=== PATIENT | female | born 1980 | race Caucasian/White ===

== ENCOUNTER 2017-09-16 03:05 | Emergency (ER) | payer MEDICAID, SELFPAY ==
[2017-09-16 03:06] VITALS: BP 151/93; PULSE 139; RESP 18; TEMP 36.9; O2SAT 98; BMI 20.2
--- NOTE | 2017-09-16 03:08 | RAD_ITS ---
STUDY: X-RAY - RIGHT FOOT CLINICAL: Female, 37 years old. Pain in the fifth metatarsal region. TECHNIQUE: 3 view(s) of the foot. COMPARISON: None. FINDINGS: There is demineralization of the rear and midfoot bones. Normal visualized subtalar, talonavicular, calcaneocuboid, tarsal and tarsometatarsal articulations. There is a nondisplaced fracture of the base of fifth metatarsal. Normal metatarsophalangeal joint of the great toe. Normal tibial and fibular sesamoid bones. Normal interphalangeal joint of the great toe. Normal phalanges of the great toe. Normal second through fifth metatarsophalangeal joints. Normal interphalangeal joints and phalanges of the lesser toes. The soft tissue structures are unremarkable. RAD/Foot min 3 Views IMPRESSION: Nondisplaced fracture of the base of the fifth metatarsal. Electronically Signed: Bolivar Lee MD at 3:33 EDT Tel , Service support ,
[2017-09-16] MEDS: HYDROcodone Bitartrate/Apap 5/325 Tablet PO ×2 (03:13→03:49)
--- NOTE | 2017-09-16 03:13 | ED.DCSUM_ITS ---
- ER Visit Summary Date of Service: 09/16/17 Chief Complaint: Right foot injury History of Present Illness: The patient is a 37 F presents to the emergency department injury to right foot. Patient states that she missed the last stair and twisted her foot underneath her. She was still able to bear weight. She states she went to sleep, and when she woke her pain was rather significant. She was then up to walk on it because of pain. She did not fall. She did not strike her head. She denies any other injury. The patient does not take any daily medications. Physical Examination: Exam is relatively unremarkable. Patient does have contusion at the base of the fifth metatarsal the right foot. Skin is intact. Pulses are normal. Cap refill is less than 2 seconds in the toes. No tenderness of the ankle. Manzo testing negative. Test Results: [] Emergency Department Course and Treatment: Plain films were obtained of the foot. Patient does have evidence of a Rueda fracture. I did educational guidance counselor her that she needs to be strictly nonweightbearing. She was placed in a bulky posterior splint and will be given 2 days of analgesics along with orthopedic follow-up. She was counseled on compartment syndrome and reasons to return. The patient be discharged home. Treatment Plan: [] Disposition: Discharge Impression: 1. Rueda fracture right foot 2. Splint by ED physician This note was generated with [employer] dictation software. It may contain incorrect words, spelling, and punctuation that were not noted in review of the chart prior to signing ED Disposition - Plan for ED Patient: Chief Complaint: Lower Extremity Injury Instructions: ED Fx Foot Prescriptions: Hydrocodone Bitart/Apap 5-325 [[place] 5/325] 1 tab PO Q6H PRN PRN 3 Days #8 tab PRN Reason: Pain Referrals: Ellis Lua MD [STAFF PHYSICIAN] -
[2017-09-16 03:15] VITALS: PULSE 119; O2SAT 99
[2017-09-16 03:50] VITALS: BP 121/76; PULSE 110; RESP 18; O2SAT 99
== END 2017-09-16 03:54 | disposition home or self-care (01) ==
PROVIDERS: Emergency Provider Emergency Medicine; Family Provider Family Medicine; PCP Family Medicine
DX: S92.354A Nondisplaced fracture of fifth metatarsal bone, right foot, initial encounter for closed fracture (principal); Z72.0 Tobacco use; X50.1XXA Overexertion from prolonged static or awkward postures, initial encounter; Y93.01 Activity, walking, marching and hiking; Y92.009 Unspecified place in unspecified non-institutional (private) residence as the place of occurrence of the external cause; Y99.8 Other external cause status
CPT/HCPCS: 29515; 73630; 99284

== ENCOUNTER 2017-12-29 09:24 | Inpatient (IN) | payer MEDICAID, SELFPAY ==
[2017-12-29] VITALS (7 sets, daily range): BP systolic 119–141; BP diastolic 42–97; PULSE 92–122; RESP 14–18; TEMP 36.3–36.9; O2SAT 98–100; BMI 20.3; BMI 20.5
--- NOTE | 2017-12-29 09:46 | ED.VISSUMM ---
- ER Visit Summary Date of Service: 12/29/17 Chief Complaint: Alcohol withdrawal, requests detox History of Present Illness: The patient is a 37 F presenting with alcohol withdrawal symptoms. Patient states that she has been trying to stop drinking at home on her own. She states she last drank 2 nights ago. She states that she has been having a sip of alcohol every few hours. She typically drinks a pint of vodka every 3 days. She has no history of withdrawal seizures. She has not been through detox in the past. She complains of abdominal pain, nausea, vomiting, diarrhea. She complains of feeling shaky. Denies other complaints. Physical Examination: Vitals are stable. Patient is afebrile. Alert no acute distress. HEENT exam is unremarkable. Neck is supple. Lungs are clear and equal bilaterally. Heart is regular and tachycardic Abdomen is soft nontender nondistended. No guarding or rebound Extremities are unremarkable. Skin is warm and dry. No focal neurologic deficit. Remainder of exam is unremarkable. Emergency Department Course and Treatment: Patient is given IV fluids. Her CIWA score is 17. CBC shows a white count of 12.1. Chemistries unremarkable other than potassium 3.4. Direct bili 0.38, alk phos 239, AST 118. Tox is negative. Patient was evaluated by [facility] in the department and accepted for admission. Discussed with the hospitalist for admission Disposition: Admission Impression: Alcohol withdrawal This note was generated with [employer] dictation software. It may contain incorrect words, spelling, and punctuation that were not noted in review of the chart prior to signing ED Disposition - Plan for ED Patient: Chief Complaint: Substance Abuse Referrals: Kamilla Medina MD [STAFF PHYSICIAN] -
--- NOTE | 2017-12-29 09:49 | ED.DCSUM_ITS ---
- ER Visit Summary Date of Service: 12/29/17 Chief Complaint: Alcohol withdrawal, requests detox History of Present Illness: The patient is a 37 F presenting with alcohol withdrawal symptoms. Patient states that she has been trying to stop drinking at home on her own. She states she last drank 2 nights ago. She states that she has been having a sip of alcohol every few hours. She typically drinks a pint of vodka every 3 days. She has no history of withdrawal seizures. She has not been through detox in the past. She complains of abdominal pain, nausea , vomiting, diarrhea. She complains of feeling shaky. Denies other complaints. Physical Examination: Vitals are stable. Patient is afebrile. Alert no acute distress. HEENT exam is unremarkable. Neck is supple. Lungs are clear and equal bilaterally. Heart is regular and tachycardic Abdomen is soft nontender nondistended. No guarding or rebound Extremities are unremarkable. Skin is warm and dry. No focal neurologic deficit. Remainder of exam is unremarkable. Emergency Department Course and Treatment: Patient is given IV fluids. Her CIWA score is 17. CBC shows a white count of 12.1. Chemistries unremarkable other than potassium 3.4. Direct bili 0.38, alk phos 239, AST 118. Tox is negative. Patient was evaluated by [facility] in the department and accepted for admission. Discussed with the hospitalist for admission Disposition: Admission Impression: Alcohol withdrawal This note was generated with [employer] dictation software. It may contain incorrect words, spelling, and punctuation that were not noted in review of the chart prior to signing ED Disposition - Plan for ED Patient: Chief Complaint: Substance Abuse Referrals: Kamilla Medina MD [STAFF PHYSICIAN] -
[2017-12-29 10:08] LABS: Absolute Lymphocyte Count 4.02 X10^3/ul (0.83-4.51); Absolute Neutrophil Count 7.2 X10^3/uL (2.0-7.7); Basophil# 0.09 X10^3/uL; Basophil% 0.7 % (0-1); Eosinophil# 0.15 X10^3/uL; Eosinophils% 1.2 % (0-5); Hematocrit 40.1 % (37-47); Lymphocyte # 4.02 X10^3/ul (4.0); Lymphocyte % 33.1 % (19-41); Mean Corp Hgb Conc 32.4 g/gl (32-36); Mean Corpuscular Hgb 31.5 pg (27.0-32.0); Mean Corpuscular Volume 97.1 fL (81-99); Monocyte# 0.71 X10^3/uL; Monocyte% 5.8 % (0-10); Neutrophil # 7.15 X10^3/uL (2.7-7.7); POSITIVE COUNT NO; POSITIVE DIFFERENTIAL NO; POSITIVE MORPHOLOGY NO; Platelet Count 240 K/mm3 (150-450); RBC Distribution Width CV 14.7 % (11.6-14.6); RBC Distribution Width SD 52.8 fl (35.1-43.9); Red Blood Count 4.13 M/mm3 (4.2-5.4); White Blood Count 12.1 K/mm3 (4.4-11.0)
[2017-12-29 10:22] LABS: AST(SGOT) 118 U/L (15-37); Alanine Aminotransfer ALT/SGPT 56 U/L (13-56); Albumin, Serum 3.6 g/dL (3.2-5.0); Alkaline Phosphatase 239 U/L (45-117); Anion Gap 12 (5-15); BUN 7 mg/dL (7-18); BUN/Creat Ratio 12.9 RATIO (10-20); Bilirubin, Direct 0.38 mg/dL (0.00-0.30); Calcium,Total 8.3 mg/dL (8.5-10.1); Chloride 106 mmol/L (98-107); Creatinine, Serum 0.54 mg/dL (0.55-1.02); EST Glomerular Filtration Rate 134 mL/min (>60); Est Glom Filt Rate - Afr Amer 163 mL/min (>60); Estimated Creatinine Clearance 113.91 ml/min; Globulin 5.1 g/dL (2.2-4.2); Glucose 82 mg/dL (74-106); Potassium 3.4 mmol/L (3.5-5.1); Protein, Total 8.7 g/dL (6.4-8.2); Sodium Level 141 mmol/L (136-145)
[2017-12-29 10:29] LABS: Amphetamine Urine VISTA NEGATIVE (<1000 ng/mL); Barbiturate Urine VISTA NEGATIVE (< 200 ng/mL); Benzodiazepine Urine VISTA NEGATIVE (< 200 ng/mL); Cocaine Urine VISTA NEGATIVE (< 300 ng/mL); Ecstacy Urine VISTA NEGATIVE (< 500 ng/mL); Methadone Urine VISTA NEGATIVE (< 300 ng/mL); PCP Urine VISTA NEGATIVE (< 25 ng/mL); THC Urine VISTA NEGATIVE (< 50 ng/mL); Vista UDS pH Range 6
[2017-12-29 10:40] LABS: Pregnancy, Serum, hCG Quali. NEGATIVE Negative (0-9 Nonpreg)
[2017-12-29] MEDS: 0.9% Normal Saline 1,000 ML 999 ML IV (10:46)
--- NOTE | 2017-12-29 11:29 | PCM.HP.STD ---
Problem List (1) Alcohol withdrawal Status: Acute History of Present Illness Date of Admission: 12/29/17 Chief Complaint: alcohol withdrawal The patient is a 37 year old F who drinks excessive amounts of alcohol has tried to wean herself off. Previously, patient was drinking a pint of vodka per day and then over the past few weeks, she has been drinking a pint about every 3 days. Over the past 24 hours patient has just been sipping alcohol. Patient said that she is sipping just to help hector her withdrawal symptoms. She is unable to tolerated at home even though she is gone cold turkey before with worse symptoms. Patient is seeking further medical assistance regards to her withdrawal symptoms. [] Past Medical History Past Medical History (Chronic Problems): Chronic Problems (Last Updated 12/29/17 @ 11:32 by Nawaf Ventura DO) Alcohol abuse (Chronic) Abnormal Pap smear of cervix (Chronic) last pap 9 years ago Medical History: Medical History (Last Updated 12/29/17 @ 11:32 by Nawaf Ventura DO) Alcohol abuse F10.10 Ascites R18.8 Cirrhosis K74.60 Depression F32.9 Allergies No Known Allergies Allergy (Verified 12/29/17 09:27) Home Medications: Ambulatory Orders Medication Instructions Recorded Sertraline HCl [Zoloft] 50 mg PO DAILY 12/29/17 Surgical History: - - She has brought in her cervical spine which were placed due to a C2 vertebral fracture sustained in a fall approximately 3 years ago. Psychiatric History: Depression SALES PROGRAM MANAGER History: - - History is positive for multiple abnormal Pap smears Smoking Status: Light Smoker (<10/day) - *Family History Maternal History Items: Cancer - Maternal aunt of cancer but she does not know what kind, Diabetes, Heart Disease, - - Thyroid disease Paternal History Items: Diabetes, High Cholesterol, Heart Disease, - - Father is a recovering alcoholic Review of Systems Constitutional: Reports: Chills, Night Sweats. Denies: Anorexia, Fever Eyes: Reports: Blurred vision, Cataracts. Denies: Double vision HEENT: Denies: Head Aches, Sinus Congestion, Sinus Drainage Cardiovascular: Denies: Chest Pain, Palpitations Respiratory: Denies: Cough, Shortness of breath at rest, Sputum production Gastrointestinal: Reports: Abdominal Pain, Diarrhea, Nausea, Vomiting Genitourinary: Reports: - - dark urine. Denies: Dysuria Musculoskeletal: Denies: Joint Pain, Joint Tenderness Skin: Denies: Dryness, Jaundice Neurological: Denies: Numbness, Tingling, Focal weakness Psychiatric: Denies: Anxiety, Depression Hematologic/ Lymphatic: Denies: Easy Bruising, Easy Bleeding, Hx of blood clot VTE Information - Inpt Only VTE Present on Admission: No VTE Mechan Device Prophylaxis: None VTE Pharm Prophylaxis ordered?: No Reason prophylaxis not ordered:: Procedure Not Indicated Patient Problems: Active and Suspected Problems (Last Updated 12/29/17 @ 11:32 by Nawaf Ventura DO) Alcohol withdrawal (Acute) - Physical Exam General: Alert, - - anxious. appears older than stated age. afebrile. diaphoretic HEENT: Atraumatic, EOMI, Normocephalic, - - no icterus Oral: Moist Mucosa, No Gingival or Mucosal Lesions/ Ulcerations Neck: No Nodes, Thyroid Normal Size and Texture Lungs: Clear to auscultation, Normal air movement, No rhonchi, No wheeze Cardiovascular: Regular rate, Regular Rhythm, Normal S1, Normal S2, No murmurs Abdomen: Bowel Sounds Present, Soft, Non Tender, Non-Distended, No Hepato-splenomegaly Extremities: No edema, No Calf Tenderness Skin: No rashes, No breakdown Musculoskeletal: Cachexia, Muscle Wasting Neurological: - - no clonus. tremulous. Psych/Mental Status: Appropriate, Anxious Vital Signs Temp Pulse Resp BP Pulse Ox 36.4 C L 122 H 14 134/97 H 99 12/29/17 09:25 12/29/17 09:25 12/29/17 09:25 12/29/17 09:25 12/29/17 09:25 Oxygen Delivery Method Room Air Weight: 50.4 kg Body Mass Index (BMI) 20.3 Finger Stick Blood Glucose 97 Laboratory Tests Past 24 Hrs 12/29/17 12/29/17 12/29/17 09:55 10:00 10:00 WBC 12.1 H RBC 4.13 L Hgb 13.0 Hct 40.1 MCV 97.1 MCH 31.5 MCHC 32.4 RDW 14.7 H RDW Differential 52.8 H Plt Count 240 MPV 10.0 Immature Gran % (Auto) 0.200 Neut % (Auto) 59.0 Lymph % (Auto) 33.1 [place] % (Auto) 5.8 Eos % (Auto) 1.2 Baso % (Auto) 0.7 Absolute Neuts (auto) 7.2 Absolute Lymphs (auto) 4.02 Total Counted Not Reportable Sodium 141 Potassium 3.4 L Chloride 106 Carbon Dioxide 23.0 Anion Gap 12 BUN 7 Creatinine 0.54 L Estim Creat Clear Calc 113.91 Est GFR (MDRD) Af Amer 163 Est GFR (MDRD) Non-Af 134 BUN/Creatinine Ratio 12.9 Glucose 82 Calcium 8.3 L Total Bilirubin 0.70 Direct Bilirubin 0.38 H AST 118 H ALT 56 Alkaline Phosphatase 239 H Total Protein 8.7 H Albumin 3.6 Globulin 5.1 H Serum , Qual Urine Opiates Screen NEGATIVE Urine Methadone Screen NEGATIVE Ur Barbiturates Screen NEGATIVE Ur Phencyclidine Scrn NEGATIVE Ur Amphetamines Screen NEGATIVE U Methamphetamin-MDMA NEGATIVE U Benzodiazepines Scrn NEGATIVE Urine Cocaine Screen NEGATIVE U Cannabinoids Screen NEGATIVE Ur Drug Screen Comment Ethyl Alcohol 12/29/17 12/29/17 10:00 10:00 WBC RBC Hgb Hct MCV MCH MCHC RDW RDW Differential Plt Count MPV Immature Gran % (Auto) Neut % (Auto) Lymph % (Auto) [place] % (Auto) Eos % (Auto) Baso % (Auto) Absolute Neuts (auto) Absolute Lymphs (auto) Total Counted Sodium Potassium Chloride Carbon Dioxide Anion Gap BUN Creatinine Estim Creat Clear Calc Est GFR (MDRD) Af Amer Est GFR (MDRD) Non-Af BUN/Creatinine Ratio Glucose Calcium Total Bilirubin Direct Bilirubin AST ALT Alkaline Phosphatase Total Protein Albumin Globulin Serum , Qual NEGATIVE Urine Opiates Screen Urine Methadone Screen Ur Barbiturates Screen Ur Phencyclidine Scrn Ur Amphetamines Screen U Methamphetamin-MDMA U Benzodiazepines Scrn Urine Cocaine Screen U Cannabinoids Screen Ur Drug Screen Comment Ethyl Alcohol 260.0 Assessment/Plan All Active Problems (Last Updated 12/29/17 @ 11:32 by Nawaf Ventura DO) Liver failure, acute (Acute) Ascites (Acute) Hypokalemia (Acute) Lactic acidosis (Acute) Coagulopathy (Acute) Hyponatremia (Acute) Septic shock (Acute) Microcytic anemia (Acute) Alcohol withdrawal (Acute) 1. Acute alcohol abuse CIWA 24 start medical stabilization protocol for acute alcohol withdrawal additional medication for other somatic complaints. MVI if worsens, may need to consider more aggressive measures, including intubation. IVF [facility] to assist with outpt programs. Code Visit Inpatient E&M: 84374 Init Hosp L3
[2017-12-29] MEDS: Dicyclomine 10 MG Capsule 20 MG PO ×2 (12:45→18:24)
[2017-12-29] MEDS: Ondansetron ODT 4 MG Tablet 8 MG PO ×2 (12:45→22:15)
[2017-12-29] MEDS: chlordiazePOXIDE 25 MG Capsule PO ×3 (12:45→23:38)
[2017-12-29] MEDS: Lactated Ringers 1,000 ML 125 ML IV (12:46)
[2017-12-29] MEDS: hydrOXYzine PAM 25 MG Capsule 50 MG PO ×2 (14:38→22:15)
[2017-12-29] MEDS: Pramipexole Di-HCl 0.25 MG Tablet PO (23:37)
[2017-12-29] MEDS: Methocarbamol 750 MG Tablet PO (23:38)
[2017-12-29] MEDS: cloNIDine HCl 0.1 MG Tablet PO (23:41)
[2017-12-30] VITALS (7 sets, daily range): BP systolic 95–116; BP diastolic 54–72; PULSE 73–81; RESP 14–16; TEMP 36.7–37.1; O2SAT 100
[2017-12-30] MEDS: chlordiazePOXIDE 25 MG Capsule PO ×3 (06:00→23:25)
[2017-12-30] MEDS: Dicyclomine 10 MG Capsule 20 MG PO ×2 (06:02→23:45)
[2017-12-30 06:29] LABS: Anion Gap 10 (5-15); BUN 8 mg/dL (7-18); BUN/Creat Ratio 14.6 RATIO (10-20); Calcium,Total 8.1 mg/dL (8.5-10.1); Chloride 104 mmol/L (98-107); Creatinine, Serum 0.55 mg/dL (0.55-1.02); EST Glomerular Filtration Rate 133 mL/min (>60); Est Glom Filt Rate - Afr Amer 161 mL/min (>60); Estimated Creatinine Clearance 111.84 ml/min; Glucose 83 mg/dL (74-106); Potassium 3.9 mmol/L (3.5-5.1); Sodium Level 139 mmol/L (136-145)
[2017-12-30] MEDS: Thiamine Hydrochloride 100 MG Tablet PO (08:41)
[2017-12-30] MEDS: Multivitamins,Therapeutic Tablet 1 TABLET PO (08:41)
[2017-12-30] MEDS: Sertraline 50 MG Tablet PO (08:42)
[2017-12-30] MEDS: Folic Acid 1 MG Tablet PO (08:42)
[2017-12-30] MEDS: cloNIDine HCl 0.1 MG Tablet PO ×2 (08:47→23:45)
[2017-12-30] MEDS: hydrOXYzine PAM 25 MG Capsule 50 MG PO ×2 (08:47→23:45)
--- NOTE | 2017-12-30 08:48 | PCM.PN.HOSP ---
Patient Problems: Active and Suspected Problems (Last Updated 12/29/17 @ 11:32 by Nawaf Ventura DO) Alcohol withdrawal (Acute) Subjective: feeling better. no further nausea. tremors less pronounced. Vitals/I&O's: Vital Signs Temp Pulse Resp BP Pulse Ox 36.8 C 81 16 116/72 100 12/30/17 08:43 12/30/17 08:43 12/30/17 08:43 12/30/17 08:43 12/30/17 08:40 Oxygen Delivery Method Room Air Weight: 50.802 kg Body Mass Index (BMI) 20.5 Intake and Output for Last 24 Hours 12/28/17 12/29/17 12/30/17 23:59 23:59 23:59 Intake Total 1004 / 1004 847 / 847 Balance 1004 / 1004 847 / 847 General: Alert, No apparent distress, - - much more comfortable today. HEENT: Atraumatic, Normocephalic Oral: Moist Mucosa, No Gingival or Mucosal Lesions/ Ulcerations Neck: No Nodes, Thyroid Normal Size and Texture Lungs: Clear to auscultation, Normal air movement, No rhonchi, No wheeze Cardiovascular: Regular rate, Regular Rhythm Abdomen: Bowel Sounds Present, Soft, Non Tender, Non-Distended Extremities: No edema, No Calf Tenderness Skin: No rashes, No breakdown Psych/Mental Status: Normal Affect, Appropriate Laboratory Results 12/30/17 05:40: Sodium 139, Potassium 3.9, Chloride 104, Carbon Dioxide 25.0, Anion Gap 10, BUN 8, Creatinine 0.55, Estim Creat Clear Calc 111.84, Est GFR (MDRD) Af Amer 161, Est GFR (MDRD) Non-Af 133, BUN/Creatinine Ratio 14.6, Glucose 83, Calcium 8.1 L Current Medications Chlordiazepoxide (Librium) 50 mg PO Q8H SERGO PRN Reason: Taper Stop: 01/01/18 14:29 Last Admin: 12/30/17 06:00 Dose: 50 mg Clonidine (Catapres) 0.1 mg PO Q2H PRN PRN PRN Reason: Hot/Cold Sweats or Anxiety Last Admin: 12/30/17 08:47 Dose: 0.1 mg Dicyclomine HCl (Bentyl) 20 mg PO Q6H PRN PRN PRN Reason: abdominal discomfort Last Admin: 12/30/17 06:02 Dose: 20 mg [facility] Last Admin: 12/30/17 08:42 Dose: 1 mg Hydroxyzine Pamoate (Vistaril Pamoate Capsule) 50 mg PO Q6H PRN PRN PRN Reason: Mild Anxiety (score 1/3) Last Admin: 12/30/17 08:47 Dose: 50 mg Lorazepam (Ativan) 2 mg IV X1 PRN PRN Reason: Seizure Methocarbamol (Methocarbamol) 750 mg PO Q6H PRN PRN PRN Reason: Muscle Aches Last Admin: 12/29/17 23:38 Dose: 750 mg [facility]ivitamins ([facility]ivitamin) [facility] Last Admin: 12/30/17 08:41 Dose: 1 tablet Ondansetron HCl (Zofran Odt) 8 mg PO Q8H PRN PRN PRN Reason: NAUSEA/VOMITING Last Admin: 12/29/17 22:15 Dose: 8 mg Pramipexole Dihydrochloride (Mirapex) 0.25 mg PO Q12H PRN PRN PRN Reason: Restless Legs Last Admin: 12/29/17 23:37 Dose: 0.25 mg Sertraline HCl (Zoloft) 50 mg PO DAILY [facility] Last Admin: 12/30/17 08:42 Dose: 50 mg Sodium Chloride () 5 - 30 ml IV UD PRN PRN Reason: SALINE FLUSH Thiamine HCl ([facility]itamin B1) [facility] Last Admin: 12/30/17 08:41 Dose: 100 mg Medical Necessity - Tobacco Use Smoking Status: Light Smoker (<10/day) Assessment/Plan All Active Problems (Last Updated 12/29/17 @ 11:32 by Nawaf Ventura DO) Liver failure, acute (Acute) Ascites (Acute) Hypokalemia (Acute) Lactic acidosis (Acute) Coagulopathy (Acute) Hyponatremia (Acute) Septic shock (Acute) Microcytic anemia (Acute) Alcohol withdrawal (Acute) 1. Acute alcohol abuse improved intake CIWA 24 continue medical stabilization protocol for acute alcohol withdrawal additional medication for other somatic complaints. MVI if worsens, may need to consider more aggressive measures, including intubation. [facility] to assist with outpt programs. I anticipate the patient will require 2 more days before she can be discharged, given her ongoing symptoms. Code Visit Inpatient E&M: 81143 Subs Hosp L2
--- NOTE | 2017-12-30 14:24 | CHAPLAIN ---
Type of Pastoral Visit _x__ Initial Visit ___ Follow-up Visit ___ On-call Visit ___ General Patient Visit ___ Spiritual Assessment ___ Family Conference ___ Bereavement ___ Rapid Response ___ Code Blue ___ Other (describe below) Pastoral Care Referral From ___ Patient ___ Family ___ Nurse ___ Physician ___ Crop Consultant ___ Strapper _x__ Other (describe below) Sacrament/Intervention ___ Active listening ___ Anointing ___ Confucianism ___ Bereavement ___ Communion ___ Cindy exploration ___ ___ Life review ___ Prayer ___ Reconciliation ___ Sacrament of Sick _x__ Supportive presence ___ Wedding ___ Other (describe below) Pastoral Comments introduction of services; pt says that she is very tired and just wants to sleep, but thank you
[2017-12-30] MEDS: Methocarbamol 750 MG Tablet PO (23:28)
[2017-12-30] MEDS: Pramipexole Di-HCl 0.25 MG Tablet PO (23:28)
[2017-12-31 06:20] VITALS: BP 100/61; PULSE 81; RESP 16; TEMP 36.9; O2SAT 100
[2017-12-31] MEDS: chlordiazePOXIDE 25 MG Capsule PO ×2 (06:24→14:36)
[2017-12-31] MEDS: hydrOXYzine PAM 25 MG Capsule 50 MG PO ×2 (06:25→22:07)
--- NOTE | 2017-12-31 07:29 | PCM.PN.HOSP ---
Patient Problems: Active and Suspected Problems (Last Updated 12/29/17 @ 11:32 by Nawaf Ventura DO) Alcohol withdrawal (Acute) Subjective: Patient was seen and examined. No acute events overnight. Denies any tremors or dizziness or chest pain or nausea or vomiting. CIWA score is 1 Vitals/I&O's: Vital Signs Temp Pulse Resp BP Pulse Ox 98.5 F 81 16 100/61 100 12/31/17 06:20 12/31/17 06:20 12/31/17 06:20 12/31/17 06:20 12/31/17 06:20 Oxygen Delivery Method Room Air Weight: 50.802 kg Body Mass Index (BMI) 20.5 Intake and Output for Last 24 Hours 12/29/17 12/30/17 12/31/17 23:59 23:59 23:59 Intake Total 1004 / 1004 1447 / 1447 400 / 400 Balance 1004 / 1004 1447 / 1447 400 / 400 General: Alert, Oriented x3, Cooperative, No apparent distress HEENT: Atraumatic, PERRLA, EOMI, Normocephalic Oral: Moist Mucosa Neck: Supple Lungs: Clear to auscultation, Normal air movement Cardiovascular: Regular rate, Regular Rhythm, Normal S1, Normal S2, No murmurs Abdomen: Bowel Sounds Present, Soft, Non Tender, Non-Distended, No Hepato-splenomegaly Extremities: No edema Skin: No rashes, No breakdown Musculoskeletal: No Tenderness to Palpation of Joints or Extremities Lymphatic: No Cervical, Supraclavicular, or Inguinal Adenopathy Neurological: Cranial nerves II-XII grossly intact, Neuro grossly intact Psych/Mental Status: Normal Affect, Appropriate Current Medications Chlordiazepoxide (Librium) 50 mg PO Q8H SERGO PRN Reason: Taper Stop: 01/01/18 14:29 Last Admin: 12/31/17 06:24 Dose: 50 mg Clonidine (Catapres) 0.1 mg PO Q2H PRN PRN PRN Reason: Hot/Cold Sweats or Anxiety Last Admin: 12/30/17 23:45 Dose: 0.1 mg Dicyclomine HCl (Bentyl) 20 mg PO Q6H PRN PRN PRN Reason: abdominal discomfort Last Admin: 12/30/17 23:45 Dose: 20 mg Folic Acid (Folic Acid) 1 mg PO DAILYCM SERGO Last Admin: 12/30/17 08:42 Dose: 1 mg Hydroxyzine Pamoate (Vistaril Pamoate Capsule) 50 mg PO Q6H PRN PRN PRN Reason: Mild Anxiety (score 1/3) Last Admin: 12/31/17 06:25 Dose: 50 mg Lorazepam (Ativan) 2 mg IV X1 PRN PRN Reason: Seizure Methocarbamol (Methocarbamol) 750 mg PO Q6H PRN PRN PRN Reason: Muscle Aches Last Admin: 12/30/17 23:28 Dose: 750 mg [facility]it[facility]) [facility] Last Admin: 12/30/17 08:41 Dose: 1 tablet Ondansetron HCl (Zofran Odt) 8 mg PO Q8H PRN PRN PRN Reason: NAUSEA/VOMITING Last Admin: 12/29/17 22:15 Dose: 8 mg Pramipexole Dihydrochloride (Mirapex) 0.25 mg PO Q12H PRN PRN PRN Reason: Restless Legs Last Admin: 12/30/17 23:28 Dose: 0.25 mg Sertraline HCl (Zoloft) 50 mg PO DAILY [facility] Last Admin: 12/30/17 08:42 Dose: 50 mg Sodium Chloride () 5 - 30 ml IV UD PRN PRN Reason: SALINE FLUSH Thiamine HCl ([facility]itamin B1) [facility] Last Admin: 12/30/17 08:41 Dose: 100 mg Medical Necessity - Tobacco Use Smoking Status: Light Smoker (<10/day) Assessment/Plan All Active Problems (Last Updated 12/29/17 @ 11:32 by Nawaf Ventura DO) Liver failure, acute (Acute) Ascites (Acute) Hypokalemia (Acute) Lactic acidosis (Acute) Coagulopathy (Acute) Hyponatremia (Acute) Septic shock (Acute) Microcytic anemia (Acute) Alcohol withdrawal (Acute) 57-year-old female with past medical history of alcohol dependency comes in for medical stabilization under the [facility] protocol 1. Acute alcohol withdrawal, improving, admitting alcohol level was 260, patient is improving on the [facility] protocol, will continue to monitor vitals 2. Hypokalemia, resolved 3. History of alcoholic cirrhosis, no signs of decompensation now. 4. Depression, on Zoloft 5. DVT Ppx- with early ambulation. Code Visit Inpatient E&M: 27226 Subs Hosp L2
[2017-12-31 07:52] VITALS: BP 107/68; PULSE 80; RESP 18; TEMP 36.4; O2SAT 100
[2017-12-31] MEDS: Multivitamins,Therapeutic Tablet 1 TABLET PO (07:56)
[2017-12-31] MEDS: cloNIDine HCl 0.1 MG Tablet PO (07:56)
[2017-12-31] MEDS: Thiamine Hydrochloride 100 MG Tablet PO (07:56)
[2017-12-31] MEDS: Sertraline 50 MG Tablet PO (07:56)
[2017-12-31] MEDS: Folic Acid 1 MG Tablet PO (07:56)
[2017-12-31 14:30] VITALS: BP 101/55; PULSE 79; RESP 16; TEMP 36.6; O2SAT 100
[2017-12-31] MEDS: Methocarbamol 750 MG Tablet PO ×2 (14:33→21:03)
[2017-12-31] MEDS: Ondansetron ODT 4 MG Tablet 8 MG PO (14:33)
[2017-12-31 21:05] VITALS: BP 108/55; PULSE 71; RESP 18; TEMP 36.3
[2018-01-01] MEDS: chlordiazePOXIDE 25 MG Capsule PO (02:14)
[2018-01-01 02:15] VITALS: BP 124/62; PULSE 75; RESP 16; TEMP 36.2
[2018-01-01] MEDS: Pramipexole Di-HCl 0.25 MG Tablet PO (03:59)
[2018-01-01] MEDS: Methocarbamol 750 MG Tablet PO (03:59)
--- NOTE | 2018-01-01 07:31 | PCM.DC ---
- Discharge Diagnoses Current Active Problems: Current Active and Chronic Problems (Last Updated 12/29/17 @ 11:32 by Nawaf Ventura DO) Alcohol withdrawal (Acute) Reason(s) for Visit for Discharge Instructions: Alcohol withdrawal You will use the following diet at home:: Regular Your food should be the consistency of: Regular Your liquids should be the consistency of: Regular/Thin Discharge Activity: Return to Normal Activity Additional Instructions: You are strongly advised to quit drinking. Follow-up with your outpatient drug rehab program as scheduled. Follow-up with your liver doctor in the [facility]. Allergies/Adverse Reactions: Allergies No Known Allergies Allergy (Verified 12/29/17 09:27) Medications to take at Discharge Sertraline HCl [Zoloft] 50 mg PO DAILY 12/29/17 Primary Care Physician: Kamilla Medina MD [STAFF PHYSICIAN] - Please follow up with your Primary Care Physician in: within 2 weeks Test Results: Test results from this visit will be discussed in further detail at your follow-up appointment, if applicable. Proposed Discharge Date: 01/01/18
[2018-01-01 07:34] LABS: Absolute Lymphocyte Count 2.03 X10^3/ul (0.83-4.51); Absolute Neutrophil Count 4.9 X10^3/uL (2.0-7.7); Basophil# 0.04 X10^3/uL; Basophil% 0.5 % (0-1); Eosinophil# 0.11 X10^3/uL; Eosinophils% 1.5 % (0-5); Hematocrit 34.4 % (37-47); Hemoglobin 10.9 g/dl (12.0-15.0); Lymphocyte # 2.03 X10^3/ul (4.0); Lymphocyte % 27.1 % (19-41); Mean Corp Hgb Conc 31.7 g/gl (32-36); Mean Corpuscular Hgb 31.2 pg (27.0-32.0); Mean Corpuscular Volume 98.6 fL (81-99); Mean Platelet Vol. 11.6 fl (6.2-12.0); Monocyte# 0.45 X10^3/uL; Neutrophil # 4.85 X10^3/uL (2.7-7.7); Neutrophil % 64.9 % (47-70); Platelet Count 158 K/mm3 (150-450); RBC Distribution Width CV 14.8 % (11.6-14.6); Red Blood Count 3.49 M/mm3 (4.2-5.4); White Blood Count 7.5 K/mm3 (4.4-11.0)
[2018-01-01 07:41] LABS: POSITIVE COUNT NO; POSITIVE DIFFERENTIAL NO; POSITIVE MORPHOLOGY NO
[2018-01-01 07:45] VITALS: BP 102/68; PULSE 82; RESP 18; TEMP 36.7; O2SAT 100
[2018-01-01 08:01] LABS: ALB/GLOB Ratio 0.7 RATIO (0.9-2.4); AST(SGOT) 62 U/L (15-37); Alanine Aminotransfer ALT/SGPT 39 U/L (13-56); Albumin, Serum 2.8 g/dL (3.2-5.0); Alkaline Phosphatase 202 U/L (45-117); Anion Gap 10 (5-15); BUN 12 mg/dL (7-18); BUN/Creat Ratio 21.6 RATIO (10-20); Calcium,Total 8.1 mg/dL (8.5-10.1); Chloride 108 mmol/L (98-107); Creatinine, Serum 0.56 mg/dL (0.55-1.02); EST Glomerular Filtration Rate 131 mL/min (>60); Est Glom Filt Rate - Afr Amer 158 mL/min (>60); Estimated Creatinine Clearance 109.84 ml/min; Globulin 4.3 g/dL (2.2-4.2); Glucose 82 mg/dL (74-106); Potassium 4.2 mmol/L (3.5-5.1); Protein, Total 7.1 g/dL (6.4-8.2); Sodium Level 141 mmol/L (136-145)
[2018-01-01 09:11] VITALS: BP 120/68; PULSE 82; RESP 18; TEMP 36.7
--- NOTE | 2018-01-01 09:45 | PCM.DC.SUM ---
Discharge Date and Diagnosis Date of Admission: 12/29/17 Date of Discharge: 01/01/18 - Primary Discharge Diagnosis Active and Suspected Problems (Last Updated 12/29/17 @ 11:32 by Nawaf Ventura DO) Alcohol withdrawal (Acute) - Secondary Discharge Diagnosis Chronic Problems (Last Updated 12/29/17 @ 11:32 by Nawaf Ventura DO) Alcohol abuse (Chronic) Abnormal Pap smear of cervix (Chronic) last pap 9 years ago Hospital Course and Treatment None Operations: None Procedures: None Summary of Care Provided: 37-year-old female with past medical history of alcohol dependency comes in for medical stabilization under the [facility] protocol. 1. Acute alcohol withdrawal, improving, admitting alcohol level was 260, improved with [facility] protocol. 2. Hypokalemia, resolved 3. History of alcoholic cirrhosis, no signs of decompensation now. 4. Depression, on Zoloft Discharge Diet: No Restrictions Discharge Activity: Return to Normal Activity Home Medications: Medications to take at Discharge Sertraline HCl [Zoloft] 50 mg PO DAILY 12/29/17 Primary Care Physician: Kamilla Medina MD [STAFF PHYSICIAN] - Please follow up with your Primary Care Physician in: within 2 weeks Disposition: Home Minutes spent on discharge:: 35 Patient Condition:: Stable Medical Necessity - Tobacco Use Smoking Status: Light Smoker (<10/day) Meaningful Use Info Meaningful Use Diagnoses (Choose all that apply): None applicable Code Visit Inpatient E&M: 97416 Disch Hosp
[2018-01-01] MEDS: Multivitamins,Therapeutic Tablet 1 TABLET PO (09:53)
[2018-01-01] MEDS: Folic Acid 1 MG Tablet PO (09:53)
[2018-01-01] MEDS: Sertraline 50 MG Tablet PO (09:54)
[2018-01-01] MEDS: Thiamine Hydrochloride 100 MG Tablet PO (09:54)
[2018-01-01] MEDS: cloNIDine HCl 0.1 MG Tablet PO (10:02)
[2018-01-01] MEDS: Dicyclomine 10 MG Capsule 20 MG PO (10:02)
[2018-01-01] MEDS: hydrOXYzine PAM 25 MG Capsule 50 MG PO (12:11)
[2018-01-01 13:24] VITALS: BP 109/58; PULSE 76; RESP 16; TEMP 36.9; O2SAT 100
== END 2018-01-01 13:32 | disposition home or self-care (01) | DRG 434 ==
LOC: ED 10:33 → MS3 11:34
PROVIDERS: Emergency Provider Emergency Medicine; Family Provider Family Medicine; PCP Family Medicine; Visit Provider Internal Medicine
DX: F10.239 Alcohol dependence with withdrawal, unspecified (principal); R64 Cachexia; K70.30 Alcoholic cirrhosis of liver without ascites; E87.6 Hypokalemia; F32.9 Major depressive disorder, single episode, unspecified; F17.210 Nicotine dependence, cigarettes, uncomplicated; Z68.20 Body mass index [BMI] 20.0-20.9, adult; Y90.8 Blood alcohol level of 240 mg/100 ml or more
CPT/HCPCS: 36415; 80048; 80053; 80076; 80307; 80320; 84703; 85025; J7030; J7120; A4216; G0480